=== PATIENT | female | born 1985 | race American Indian/Alaskan Native ===

== ENCOUNTER 2017-12-21 23:48 | Emergency (ER) | payer MEDICAID, OTHER ==
[2017-12-22 02:04] LABS: Basophils # (Auto) 0.2 K/mm3 (0.0-0.1); Basophils % (Auto) 1.9 % (0.0-1.8); Eosinophils # (Auto) 0.1 K/mm3 (0.0-0.4); Eosinophils % (Auto) 0.8 % (0.0-4.3); Hematocrit 39.5 % (30.3-42.9); Hemoglobin 13.6 gm/dl (10.1-14.3); Lymphocytes # (Auto) 3.3 K/mm3 (1.2-5.4); Lymphocytes % (Auto) 34.5 % (13.4-35.0); Mean Corpuscular HGB Conc 34 % (30-34); Mean Corpuscular Hemoglobin 29 pg (28-32); Mean Corpuscular Volume 85 fl (79-97); Monocytes # (Auto) 0.7 K/mm3 (0.0-0.8); Platelet Count 413 K/mm3 (140-440); Red Blood Count 4.66 M/mm3 (3.65-5.03); Red Cell Distribution Width 14.3 % (13.2-15.2)
[2017-12-22 02:23] LABS: BUN/Creatinine Ratio 14; Blood Urea Nitrogen 11 mg/dL (7-17); Calcium 9.4 mg/dL (8.4-10.2); Hemolysis Index 6
[2017-12-22 05:37] LABS: Bilirubin,Urine NEG (Negative); Blood,Urine NEG (Negative); Color,Urine Yellow (Yellow); Mucus,Urine FEW /HPF; Protein,Urine <15 mg/dL mg/dL (Negative); Urobilinogen,Urine < 2.0 mg/dL (<2.0); WBC,Urine < 1.0 /HPF (0.0-6.0)
[2017-12-22] MEDS ORDERED: NACL 0.9% 1000 ML 1,000 ML IV ONE (09:38)
[2017-12-22] MEDS ORDERED: MORPHINE IV PRN (09:38)
[2017-12-22] MEDS ORDERED: ZOFRAN IV ONE (09:38)
--- NOTE | 2017-12-22 09:42 | Emergency Department Report ---
- General Chief Complaint: Laceration/Recheck/Suture Stated Complaint: WOUND CHECK Time Seen by Provider: 12/22/17 09:34 Source: patient, family Mode of arrival: Ambulatory Limitations: No Limitations - History of Present Illness Initial Comments: Patient reports that she had hernia repair done towards the end of October of this year. She says there is infection in her nasal area. She said it reopened one week ago. Patient reported that she had the procedure done in [place] and she moved to [place] so there is no way she can follow-up. She says she has a follow-up appointment for January 18. She says she took Excedrin is not helping. Patient is here requesting that wound be repaired. She says she called called her surgeon in [place] and he said that emergency room should be able to help her . Pain is 7 out of 10 and feels sharp. Excedrin did not help pain. Pain is worse with touch. Better with rest. Last menstrual cycle was . Denies any fever or chills or nausea or vomiting. Pain is localized around surgical site of the umbilical hernia patient has a history of hypertension, pulmonary embolism and sickle cell trait. She has a history of left hand surgery, hernia repair, breast lift and tummy tuck. She reports drainage from open wounds mouth. Onset/Timin -: week(s) Location: abdomen Place: home Patient Tetanus UTD: Yes Context: other (status post umbilical hernia repair with complaints of open wound and drainage) Associated Symptoms: pain Treatments Prior to Arrival: bandage, other (Excedrin) - Related Data Previous Rx's Medication Instructions Recorded Last Taken Type Clindamycin [Clindamycin CAP] 300 mg PO Q6H #21 capsule 12/22/17 Unknown Rx Allergies Allergy/AdvReac Type Severity Reaction Status Date / Time No Known Allergies Allergy Unverified 12/22/17 01:26 ED Review of Systems ROS: Stated complaint: WOUND CHECK Other details as noted in HPI Comment: Unobtainable due to pts medical conditions Constitutional: no symptoms reported Eyes: denies: eye pain, eye discharge ENT: denies: ear pain, throat pain, congestion Respiratory: no symptoms reported Cardiovascular: denies: chest pain, palpitations, dyspnea on exertion, edema, syncope, paroxysmal nocturnal dyspnea Gastrointestinal: abdominal pain. denies: nausea, vomiting, constipation, hematemesis, melena, hematochezia Genitourinary: denies: urgency, dysuria, hematuria, abnormal menses Musculoskeletal: denies: back pain, joint swelling, arthralgia, myalgia Skin: denies: rash Neurological: denies: headache, numbness, abnormal gait, vertigo ED Past Medical Hx - Past Medical History Previous Medical History?: Yes Hx Hypertension: Yes Hx Pulmonary Embolism: Yes Hx Sickle Cell Disease: Yes (trait) - Surgical History Past Surgical History?: Yes Additional Surgical History: left hand, hernia, breast lift, tummy tuck - Family History Family history: hypertension - Social History Smoking Status: Never Smoker Substance Use Type: Alcohol - Medications Home Medications: Home Medications Medication Instructions Recorded Confirmed Last Taken Type Clindamycin [Clindamycin CAP] 300 mg PO Q6H #21 capsule 12/22/17 Unknown Rx ED Physical Exam - General Limitations: No Limitations General appearance: alert, in no apparent distress - Head Head exam: Present: atraumatic, normocephalic, normal inspection, other (normal exam) - Eye Eye exam: Present: normal appearance, PERRL, EOMI. Absent: conjunctival injection, periorbital swelling, periorbital tenderness Pupils: Present: normal accommodation - ENT ENT exam: Present: normal exam, normal orophraynx, mucous membranes moist, TM's normal bilaterally, normal external ear exam - Neck Neck exam: Present: normal inspection, full ROM, other (no C-spine tenderness). Absent: tenderness, meningismus, lymphadenopathy, thyromegaly - Respiratory Respiratory exam: Present: normal lung sounds bilaterally. Absent: respiratory distress, chest wall tenderness, accessory muscle use - Cardiovascular Cardiovascular Exam: Present: regular rate, normal rhythm, normal heart sounds - GI/Abdominal GI/Abdominal exam: Present: distended, tenderness (periumbilical area), guarding , normal bowel sounds, other (patient with open area at surgical site umbilical area with puslike drainage. Drainage is malodorous). Absent: rebound, rigid, organomegaly, mass, bruit, pulsatile mass, hernia - Extremities Exam Extremities exam: Present: normal inspection, full ROM, normal capillary refill , other (no clubbing, cyanosis or edema. +2 pulses to all extremities and no neurovascular compromise). Absent: tenderness, pedal edema, joint swelling, calf tenderness - Back Exam Back exam: Present: normal inspection, full ROM, other (ambulates without any difficulties). Absent: tenderness, CVA tenderness (R), CVA tenderness (L), muscle spasm, paraspinal tenderness, vertebral tenderness, rash noted - Neurological Exam Neurological exam: Present: alert, oriented X3, normal gait - Psychiatric Psychiatric exam: Present: normal affect, normal mood - Skin Skin exam: Present: warm, dry, erythema - Expanded Skin Exam Expanded Type of lesion: Present: abscess, other (surgical:) Distribution of rash: abdomen (umbilical) Description of rash: Present: tenderness, erythematous, swelling, discharge ( foul-smelling discharge). Absent: indurated ED Course Vital Signs 12/22/17 12/22/17 12/22/17 00:53 01:26 14:37 Temperature 98.4 F 98.4 F 98.7 F Pulse Rate 70 71 82 Respiratory 16 18 18 Rate Blood Pressure 131/97 131/97 Blood Pressure 111/68 [Right] O2 Sat by Pulse 100 100 Oximetry - Reevaluation(s) Reevaluation #1: 12/22/17 10:35 Patient started on normal saline 1 L and emergency room, nothing by mouth status. Zofran 4 mg IV, morphine 4 mg IV. Blood cultures collected and sent, patient to start on IV vancomycin. Lab work are within normal limits. is negative. She is stable and that her pain is better after medication. Still awaiting CT scan of abdomen and pelvis with IV contrast. Culture collected and sent Reevaluation #2: 12/22/17 11:44 Patient with tenderness to palpate periumbilical area but she said her pain is better. CT scan of the abdomen and pelvis with IV contrast shows that patient was superficial periumbilical infection with ear but no fluid collection. And no drainable abscess. This is discussed patient and I called Dr. Richards as who is surgery business economist. Reevaluation #3: 12/22/17 12:34 Patient pain is controlled. I spoke with Dr. Richards who is surgery on-call today. I gave patient history and lab/ CT scan results . He also spoke with Dr. Kitchen will give him information on patient. Surgery wants patient to be admitted via hospitalist service with surgery being consulted. Patient is stable at present and in no acute distress. Spoke with Dr. Grande who was the hospitalist and he'll see patient. Patient to be started on Zosyn IV Reevaluation #4: 12/22/17 13:18 Dr. Grande came and evaluated patient. - Consultations Consultation #1: 12/22/17 12:36 [facility] ED Medical Decision Making - Lab Data Result diagrams: 12/22/17 01:53 12/22/17 01:53 Lab Results 12/22/17 12/22/17 12/22/17 Range/Units 01:53 01:53 01:53 WBC 9.6 (4.5-11.0) K/mm3 RBC 4.66 (3.65-5.03) M/mm3 Hgb 13.6 (10.1-14.3) gm/dl Hct 39.5 (30.3-42.9) % MCV 85 (79-97) fl MCH 29 (28-32) pg MCHC 34 (30-34) % RDW 14.3 (13.2-15.2) % Plt Count 413 (140-440) K/mm3 Lymph % (Auto) 34.5 (13.4-35.0) % Orange % (Auto) 7.0 (0.0-7.3) % Eos % (Auto) 0.8 (0.0-4.3) % Baso % (Auto) 1.9 H (0.0-1.8) % Lymph # 3.3 (1.2-5.4) K/mm3 Orange # 0.7 (0.0-0.8) K/mm3 Eos # 0.1 (0.0-0.4) K/mm3 Baso # 0.2 H (0.0-0.1) K/mm3 Seg Neutrophils % 55.8 (40.0-70.0) % Seg Neutrophils # 5.4 (1.8-7.7) K/mm3 Sodium 134 L (137-145) mmol/L Potassium 3.6 (3.6-5.0) mmol/L Chloride 92.1 L (98-107) mmol/L Carbon Dioxide 28 (22-30) mmol/L Anion Gap 18 mmol/L BUN 11 (7-17) mg/dL Creatinine 0.8 (0.7-1.2) mg/dL Estimated GFR > 60 ml/min BUN/Creatinine Ratio 14 % Glucose 94 (65-100) mg/dL Calcium 9.4 (8.4-10.2) mg/dL Total Bilirubin (0.1-1.2) mg/dL Direct Bilirubin (0-0.2) mg/dL AST (5-40) units/L ALT (7-56) units/L Alkaline Phosphatase (35-129) units/L Total Protein (6.3-8.2) g/dL Albumin (3.9-5) g/dL Albumin/Globulin Ratio % HCG, Qual Negative (Negative) Urine Color (Yellow) Urine Turbidity (Clear) Urine pH (5.0-7.0) Ur Specific [place] (1.003-1.030) Urine Protein (Negative) mg/dL Urine Glucose (UA) (Negative) mg/dL Urine Ketones (Negative) mg/dL Urine Blood (Negative) Urine Nitrite (Negative) Urine Bilirubin (Negative) Urine Urobilinogen (<2.0) mg/dL Ur Leukocyte Esterase (Negative) Urine WBC (Auto) (0.0-6.0) /HPF Urine RBC (Auto) (0.0-6.0) /HPF U Epithel Cells (Auto) (0-13.0) /HPF Urine Mucus /HPF 12/22/17 12/22/17 Range/Units 04:14 11:19 WBC (4.5-11.0) K/mm3 RBC (3.65-5.03) M/mm3 Hgb (10.1-14.3) gm/dl Hct (30.3-42.9) % MCV (79-97) fl MCH (28-32) pg MCHC (30-34) % RDW (13.2-15.2) % Plt Count (140-440) K/mm3 Lymph % (Auto) (13.4-35.0) % Orange % (Auto) (0.0-7.3) % Eos % (Auto) (0.0-4.3) % Baso % (Auto) (0.0-1.8) % Lymph # (1.2-5.4) K/mm3 Orange # (0.0-0.8) K/mm3 Eos # (0.0-0.4) K/mm3 Baso # (0.0-0.1) K/mm3 Seg Neutrophils % (40.0-70.0) % Seg Neutrophils # (1.8-7.7) K/mm3 Sodium (137-145) mmol/L Potassium (3.6-5.0) mmol/L Chloride (98-107) mmol/L Carbon Dioxide (22-30) mmol/L Anion Gap mmol/L BUN (7-17) mg/dL Creatinine (0.7-1.2) mg/dL Estimated GFR ml/min BUN/Creatinine Ratio % Glucose (65-100) mg/dL Calcium (8.4-10.2) mg/dL Total Bilirubin 0.20 (0.1-1.2) mg/dL Direct Bilirubin < 0.2 (0-0.2) mg/dL AST 15 (5-40) units/L ALT 15 (7-56) units/L Alkaline Phosphatase 66 (35-129) units/L Total Protein 7.6 (6.3-8.2) g/dL Albumin 4.1 (3.9-5) g/dL Albumin/Globulin Ratio 1.2 % HCG, Qual (Negative) Urine Color Yellow (Yellow) Urine Turbidity Clear (Clear) Urine pH 5.0 (5.0-7.0) Ur Specific [place] 1.014 (1.003-1.030) Urine Protein <15 mg/dl (Negative) mg/dL Urine Glucose (UA) Neg (Negative) mg/dL Urine Ketones Neg (Negative) mg/dL Urine Blood Neg (Negative) Urine Nitrite Neg (Negative) Urine Bilirubin Neg (Negative) Urine Urobilinogen < 2.0 (<2.0) mg/dL Ur Leukocyte Esterase Neg (Negative) Urine WBC (Auto) < 1.0 (0.0-6.0) /HPF Urine RBC (Auto) 1.0 (0.0-6.0) /HPF U Epithel Cells (Auto) 1.0 (0-13.0) /HPF Urine Mucus Few /HPF Blood culture pending 1 culture from periumbilical area - Radiology Data Radiology results: report reviewed CT scan of the abdomen and pelvis with IV contrast revealed patient with suspected superficial periumbilical infection with ear but no fluid collection or drainable abscess. Fat-containing local hernia. Healed midline anterior suprapubic surgical incision with no signs of inflammation in the abdominal wall. The small bowel and colon are normal. No ascites and no pneumoperitoneum written to medium. - Medical Decision Making ED course: She presented to the emergency room with complaints that she has infection to her periumbilical area where she had surgery done third week in October in [place]. She says she moved to [place] and she has an infection at the surgical site and she is worried. She states that she called her surgeon in [place] and he said to go to the emergency room and they'll take care of it. CT scan of the abdomen and pelvis with IV contrast shows patient with superficial infection periumbilical area, which fat containing hernia without any gangrene or skin strangulation. No abscesses were seen. Patient had wound cultures done and sent. CBC and chemistry stable, negative negative urinalysis. Patient given 1 L of normal saline IV, Zofran 8 mg ODT and a total of 6 mg of morphine IV initial doses 4 mg and subsequent dose was at 2 mg IV. Patient voiced relief of pain. She had no acute abdomen. I spoke with Dr. Coon regarding patient laboratory findings and CT findings along with clinical presentation and complaints. Surgery was called who is Dr. Richards and after speaking myself and Dr. castaneda it was decided the patient will be admitted by hospitalist and he will be consulted. Dr. Grande was called and he saw patient and decided the patient can be discharged home on antibiotic. He spoke with on-call surgeon per Dr. Grande and patient will follow-up with Dr. richards outpatient. Patient was able to tolerate oral liquids and emergency room after IV fluid. She had no episode of nausea vomiting. Blood cultures are pending. Patient was discharged from emergency room by Dr. Grande who is hospitalists. Critical care attestation.: If time is entered above; I have spent that time in minutes in the direct care of this critically ill patient, excluding procedure time. ED Disposition Clinical Impression: S/P umbilical hernia repair, follow-up exam Postoperative cellulitis of surgical wound Qualifiers: Encounter type: initial encounter Qualified Code(s): T81.4XXA - Infection following a procedure, initial encounter Abdominal pain Qualifiers: Abdominal location: periumbilical Qualified Code(s): R10.33 - Periumbilical pain Disposition: OP ADMIT IP TO THIS HOSP Is pt being admited?: No Does the pt Need Aspirin: No Condition: Stable Instructions: Acute Wound Care (ED), Chronic Wound Care (ED), Wound Healing and Your Diet (ED) Additional Instructions: IT IS VERY IMPORTANT TO FOLLOW WITH DR. RICHARDS IN 5 DAYS. RETURN TO THE EMERGENCY DEPARTMENT FOR ANY NEW OR WORSENING SYMPTOMS. Prescriptions: Clindamycin [Clindamycin CAP] 300 mg PO Q6H #21 capsule Referrals: CATARINA RICHARDS MD [Staff Physician] - 3-5 Days PRIMARY CARE, [Primary Care Provider] - 3-5 Days Print Language: DUTCH
[2017-12-22] MEDS ORDERED: VANCOMYCIN VIAL IV ONE (09:59)
[2017-12-22] MEDS ORDERED: VANCOMYCIN PHARMACY TO DOSE IV SCH ×2 (10:00→11:00)
[2017-12-22] MEDS ORDERED: VANCOMYCIN 1,250 MG in NACL 0.9% 250ML 250 ML IV SCH (11:00)
--- NOTE | 2017-12-22 11:19 | Cat Scan Report ---
CT ABDOMEN AND PELVIS WITH CONTRAST: 12/21/17 23:48:00 CLINICAL: Post surgical wound infection an umbilical hernia. COMPARISON: None. TECHNIQUE: Volumetric acquisition and 1.25 millimeter scan reconstructions after the uneventful intravenous injection of 100 cc Omnipaque 300. Consent was obtained prior to the administration of contrast. Oral contrast was not given. FINDINGS: Abdomen: Rectus muscle diastasis and a moderate size fat containing umbilical hernia. No bowel extends into the hernia. A few pockets of superficial air are localized to the umbilicus and there is no periumbilical fluid collection. The small bowel and colon are normal. No ascites and no pneumoperitoneum. Normal liver, bile ducts and gallbladder. Normal stomach, duodenum, pancreas and spleen. Normal adrenal glands and kidneys. The renal collecting systems and ureters are nondilated. Normal aorta and inferior vena cava. Pelvis: Normal urinary bladder.Normal uterus and ovaries. No adnexal mass or free fluid. Normal rectum and sigmoid colon.A small midline suprapubic healed surgical incision with no inflammatory changes in the anterior abdominal wall at the incision. Bone windows demonstrate no bone lesion. IMPRESSION:1. Suspect a superficial periumbilical infection with air but no fluid collection or drainable abscess. 2. Fat-containing local hernia. 3. Healed midline anterior suprapubic surgical incision with no signs of inflammation in the abdominal wall.
[2017-12-22 12:04] LABS: Alanine Aminotransferase 15 units/L (7-56); Albumin 4.1 g/dL (3.9-5)
[2017-12-22 12:28] LABS: Bilirubin,Direct < 0.2 mg/dL (0-0.2)
[2017-12-22] MEDS ORDERED: MORPHINE IM ONE (13:00)
--- NOTE | 2017-12-22 13:45 | History and Physical Report ---
Medications and Allergies Allergies Allergy/AdvReac Type Severity Reaction Status Date / Time No Known Allergies Allergy Unverified 12/22/17 01:26 Active Meds: Active Medications Vancomycin HCl 1,250 mg/ (Sodium Chloride) 262.5 mls @ 166.667 mls/hr IV Q8H [facility] Last Admin: 12/22/17 11:35 Dose: 166.667 mls/hr Piperacillin Sod/Tazobactam Sod (Zosyn/Ns 4.5gm/100ml) 4.5 gm in 100 mls @ 200 mls/hr IV ONCE [place] Stop: 12/22/17 16:01 Morphine Sulfate (Morphine) 4 mg IV Q5MIN PRN PRN Reason: Chest Pain Last Admin: 12/22/17 10:19 Dose: 4 mg Vancomycin HCl (Vancomycin Pharmacy To Dose) 1 each IV PKCONSULT [facility] Exam - Constitutional Vitals: Temp Pulse Resp BP Pulse Ox 98.4 F 71 18 131/97 100 12/22/17 01:26 12/22/17 01:26 12/22/17 01:26 12/22/17 01:26 12/22/17 01:26 Results - Labs CBC & Chem 7: 12/22/17 01:53 12/22/17 01:53 Labs: Abnormal lab results 12/22/17 12/22/17 Range/Units 01:53 01:53 Baso % (Auto) 1.9 H (0.0-1.8) % Baso # 0.2 H (0.0-0.1) K/mm3 Sodium 134 L (137-145) mmol/L Chloride 92.1 L (98-107) mmol/L
[2017-12-22] MEDS ORDERED: ZOSYN/NS 4.5GM/100ML 4.5 GM/100 ML VIAL IV SCH (14:00)
[2017-12-22 14:38] VITALS: BP 111/68
== END 2017-12-22 14:37 | disposition admitted as inpatient to this hospital (09) ==
LOC: ED 23:48
DX: T81.4XXA Infection following a procedure, initial encounter (principal); R10.33 Periumbilical pain; I10 Essential (primary) hypertension; Z86.711 Personal history of pulmonary embolism
CPT/HCPCS: 36415; 74177; 80048; 80074; 81001; 84703; 85025; 87040; 87076; 87116; 87186; 96361; 96365; 96366; 96375; 99284; J2270; J2405; J7030; J7050; Q9967; J2543; J3370

== ENCOUNTER 2018-10-31 21:01 | Emergency (ER) | payer MEDICAID, OTHER ==
--- NOTE | 2018-10-31 21:50 | Emergency Department Report ---
Chief Complaint: Vaginal Bleeding Stated Complaint: SPOTTING LOWER BACK PAIN 17 WEEKS Time Seen by Provider: 10/31/18 21:47 - HPI History of Present Illness: pt is 17 weeks based on LNMP pt vaginal bleeding that began this morning lower back pain has seen OB but has not had a US /P:4/A:2 MSE screening note: Focused history and physical exam performed. Due to findings the following was ordered: labs, quant, UA, ABO/Rh, US ED Disposition for MSE Condition: Stable
[2018-10-31 21:56] VITALS: BP 117/78
[2018-10-31 22:53] LABS: Bilirubin,Urine NEG (Negative); Blood,Urine NEG (Negative); Color,Urine Yellow (Yellow); Mucus,Urine FEW /HPF; Protein,Urine <15 mg/dL mg/dL (Negative); Urobilinogen,Urine < 2.0 mg/dL (<2.0)
[2018-10-31 22:54] LABS: Basophils # (Auto) 0.1 K/mm3 (0.0-0.1); Basophils % (Auto) 0.6 % (0.0-1.8); Eosinophils % (Auto) 0.4 % (0.0-4.3); Hematocrit 34.7 % (30.3-42.9); Hemoglobin 11.6 gm/dl (10.1-14.3); Lymphocytes # (Auto) 2.5 K/mm3 (1.2-5.4); Lymphocytes % (Auto) 23.6 % (13.4-35.0); Mean Corpuscular HGB Conc 33 % (30-34); Mean Corpuscular Volume 86 fl (79-97); Monocytes # (Auto) 0.6 K/mm3 (0.0-0.8); Monocytes % (Auto) 5.6 % (0.0-7.3); Platelet Count 336 K/mm3 (140-440); Red Blood Count 4.04 M/mm3 (3.65-5.03); Red Cell Distribution Width 14.3 % (13.2-15.2)
[2018-10-31 23:11] LABS: Alanine Aminotransferase 11 units/L (7-56); Albumin 3.5 g/dL (3.9-5); BUN/Creatinine Ratio 10; Blood Urea Nitrogen 7 mg/dL (7-17); Hemolysis Index 2
[2018-10-31] MEDS ORDERED: TYLENOL PO ONE (23:24)
--- NOTE | 2018-10-31 23:25 | Emergency Department Report ---
ED HPI - General Chief complaint: Vaginal Bleeding Stated complaint: SPOTTING LOWER BACK PAIN 17 WEEKS Time Seen by Provider: 10/31/18 21:47 Source: patient Mode of arrival: Ambulatory Limitations: No Limitations - History of Present Illness Initial comments: pt is 17 weeks based on LNMP pt vaginal bleeding that began this mor cass lower back pain has seen OB but has not had a US /P:4/A:2 MD Complaint: abdominal pain Onset/Timin -: days(s) Location: abdomen Radiation: LLQ, RLQ Severity: moderate Severity scale (0 -10): 3 Quality: cramping, aching Consistency: constant Improves with: none, urination Worsens with: none Associated symptoms: abdominal pain, headache. denies: nausea/vomiting, vaginal discharge Vaginal bleeding: none :: Yes Number of weeks : 18 OB History - Current : no complications OB History - Previous Pregnancies: preeclampsia, other (4 vaginal normal, 2 tubal pregnancie terminated ) Last menstrual period: 06/04/18 Pre- care: followed by OB (Dr Meza) - Related Data : 7 Para: 4 Ab: 2 Previous Rx's Medication Instructions Recorded Last Taken Type Clindamycin [Clindamycin CAP] 300 mg PO Q6H #21 capsule 12/22/17 Unknown Rx Acetaminophen [Tylenol] 650 mg PO QID PRN #30 capsule 11/01/18 Unknown Rx Allergies Allergy/AdvReac Type Severity Reaction Status Date / Time No Known Allergies Allergy Unverified 12/22/17 01:26 ED Review of Systems ROS: Stated complaint: SPOTTING LOWER BACK PAIN 17 WEEKS Other details as noted in HPI Constitutional: denies: chills, fever Eyes: denies: eye pain, eye discharge, vision change ENT: denies: ear pain, throat pain Respiratory: denies: cough, shortness of breath, wheezing Cardiovascular: denies: chest pain, palpitations Endocrine: no symptoms reported Gastrointestinal: abdominal pain. denies: nausea, diarrhea, constipation, hematemesis, hematochezia Genitourinary: denies: urgency, dysuria, discharge Musculoskeletal: denies: back pain, joint swelling, arthralgia Skin: denies: rash, lesions Neurological: denies: headache, weakness, paresthesias Psychiatric: denies: anxiety, depression Hematological/Lymphatic: denies: easy bleeding, easy bruising ED Past Medical Hx - Past Medical History Previous Medical History?: Yes Hx Hypertension: Yes Hx Pulmonary Embolism: Yes Hx Sickle Cell Disease: Yes (trait) - Surgical History Past Surgical History?: Yes Additional Surgical History: left hand, hernia, breast lift, tummy tuck - Social History Smoking Status: Never Smoker Substance Use Type: None - Medications Home Medications: Home Medications Medication Instructions Recorded Confirmed Last Taken Type Clindamycin [Clindamycin CAP] 300 mg PO Q6H #21 capsule 12/22/17 Unknown Rx Acetaminophen [Tylenol] 650 mg PO QID PRN #30 capsule 11/01/18 Unknown Rx ED Physical Exam - General Limitations: No Limitations General appearance: alert, in no apparent distress - Head Head exam: Present: atraumatic, normocephalic - Eye Eye exam: Present: normal appearance, PERRL, EOMI Pupils: Present: normal accommodation - ENT ENT exam: Present: mucous membranes moist - Neck Neck exam: Present: normal inspection, full ROM. Absent: lymphadenopathy - Respiratory Respiratory exam: Present: normal lung sounds bilaterally. Absent: respiratory distress, wheezes, stridor, chest wall tenderness - Cardiovascular Cardiovascular Exam: Present: regular rate, normal rhythm, normal heart sounds. Absent: systolic murmur, diastolic murmur, rubs, gallop - GI/Abdominal GI/Abdominal exam: Present: soft, normal bowel sounds. Absent: tenderness, rebound, bruit, hernia - Rectal Rectal exam: Present: deferred - External exam: Present: other (exam deferred per patient ) - Extremities Exam Extremities exam: Present: normal inspection - Back Exam Back exam: Present: normal inspection, full ROM. Absent: tenderness, CVA tenderness (R), CVA tenderness (L), muscle spasm, paraspinal tenderness, vertebral tenderness, rash noted - Neurological Exam Neurological exam: Present: alert, oriented X3, CN II-XII intact, normal gait, reflexes normal - Psychiatric Psychiatric exam: Present: normal affect, normal mood - Skin Skin exam: Present: warm, dry, intact, normal color. Absent: rash ED Course Vital Signs 10/31/18 21:52 Temperature 97.7 F Pulse Rate 104 H Respiratory 16 Rate Blood Pressure 117/78 O2 Sat by Pulse 100 Oximetry ED Medical Decision Making - Lab Data Result diagrams: 10/31/18 22:00 10/31/18 22:00 Labs 10/31/18 10/31/18 10/31/18 22:00 22:00 22:00 WBC 10.6 RBC 4.04 Hgb 11.6 Hct 34.7 MCV 86 MCH 29 MCHC 33 RDW 14.3 Plt Count 336 Lymph % (Auto) 23.6 Mcintosh % (Auto) 5.6 Eos % (Auto) 0.4 Baso % (Auto) 0.6 Lymph # 2.5 Mcintosh # 0.6 Eos # 0.0 Baso # 0.1 Seg Neutrophils % 69.8 Seg Neutrophils # 7.4 Sodium 135 L Potassium 3.9 Chloride 101.2 Carbon Dioxide 20 L Anion Gap 18 BUN 7 Creatinine 0.7 Estimated GFR > 60 BUN/Creatinine Ratio 10 Glucose 85 Calcium 9.0 Total Bilirubin 0.20 AST 17 ALT 11 Alkaline Phosphatase 67 Total Protein 6.8 Albumin 3.5 L Albumin/Globulin Ratio 1.1 Urine Color Urine Turbidity Urine pH Ur Specific [place] Urine Protein Urine Glucose (UA) Urine Ketones Urine Blood Urine Nitrite Urine Bilirubin Urine Urobilinogen Ur Leukocyte Esterase Urine WBC (Auto) Urine RBC (Auto) U Epithel Cells (Auto) Urine Mucus Blood Type A POSITIVE 10/31/18 22:30 WBC RBC Hgb Hct MCV MCH MCHC RDW Plt Count Lymph % (Auto) Mcintosh % (Auto) Eos % (Auto) Baso % (Auto) Lymph # Mcintosh # Eos # Baso # Seg Neutrophils % Seg Neutrophils # Sodium Potassium Chloride Carbon Dioxide Anion Gap BUN Creatinine Estimated GFR BUN/Creatinine Ratio Glucose Calcium Total Bilirubin AST ALT Alkaline Phosphatase Total Protein Albumin Albumin/Globulin Ratio Urine Color Yellow Urine Turbidity Clear Urine pH 5.0 Ur Specific [place] 1.014 Urine Protein <15 mg/dl Urine Glucose (UA) Neg Urine Ketones Neg Urine Blood Neg Urine Nitrite Neg Urine Bilirubin Neg Urine Urobilinogen < 2.0 Ur Leukocyte Esterase Neg Urine WBC (Auto) 1.0 Urine RBC (Auto) 2.0 U Epithel Cells (Auto) 1.0 Urine Mucus Few Blood Type - Radiology Data Radiology results: image reviewed Single IUP 17 weeks 5 Days , Heart Rate 166 bpm FINDINGS: MATERNAL: Uterus and cervix: The cervix is closed measures 3.8 cm in length. IUP: Single live intrauterine gestation. Position: Breech Placental position: Fundal, without previa . Amniotic fluid volume Normal.. Cardiac activity: Regular rhythm at 166 bpm. BIOMETRY: Biparietal diameter: 3.7 cm corresponding to 17 weeks and 2 days. Head circumference: 14.1 cm corresponding to 17 weeks and 3 days. abdominal circumference: 12 cm corresponding to 17 weeks and 5 days. Femur length: 2.4 cm corresponding to 17 weeks and 3 days. Ratio biometry: Normal . Estimated Weight: 199 grams +/- grams Mean Gestational Age (composite criteria) based on today's measurements: 17 weeks and 3 days . Estimated Due Date (earliest scan): 04/07/2019. IMPRESSION: Single live intrauterine gestation at 17 weeks and 3 days. Estimated due date: 04/07/2019. This document is electronically signed by Giulia Hui MD., October 31 2018 11:35:52 PM ET Transcribed By: [facility] [place] Dictated By: GIULIA HUI Electronically Authenticated By: GIULIA HUI Signed Date/Time: 10/31/182337 DD/ 16 TD/TT: 10/31/182318 - Medical Decision Making US: Single IUP 17Weeks 5 Days , Hear 166 bpm, plan: Tylenol prn pain , follow up with OBGYN Dr. West tomorrow, for follow as pt defers vaginal exam to OB, states bleeding is pink spotting, no clots no vaginal discharge , will dx Threatened Miscarriage Bleeding during , Pelvic Rest, Return to ed if syptoms wornsen. Critical care attestation.: If time is entered above; I have spent that time in minutes in the direct care of this critically ill patient, excluding procedure time. ED Disposition Clinical Impression: Threatened miscarriage Abdominal pain during Qualifiers: Trimester: first trimester Qualified Code(s): O26.891 - Other specified p regnancy related conditions, first trimester; R10.9 - Unspecified abdominal pain Disposition: -01 TO HOME OR SELFCARE Is pt being admited?: No Does the pt Need Aspirin: No Condition: Stable Instructions: Threatened Miscarriage (ED), Abdominal Pain in (ED) Prescriptions: Acetaminophen [Tylenol] 650 mg PO QID PRN #30 capsule PRN Reason: pain Referrals: PRIMARY CAREMD [Referring] - 3-5 Days RUIZ WEST MD [Referring] - 24 Hours Forms: Work/School Release Form(ED) Time of Disposition: 00:40
--- NOTE | 2018-10-31 23:38 | Ultrasound Report ---
PROCEDURE: US OB >= 14 WEEKS FETUS TECHNIQUE: Real-time transabdominal sonography of the uterus, placenta, amniotic fluid, adnexa, and fetus was performed with image documentation. Measurements were obtained to determine age/size. M-mode Doppler was used to document heartbeat. ADDITIONAL GESTATION: None HISTORY: 17 weeks , vaginal bleeding COMPARISONS: None. FINDINGS: MATERNAL: Uterus and cervix: The cervix is closed measures 3.8 cm in length. IUP: Single live intrauterine gestation. Position: Breech Placental position: Fundal, without previa . Amniotic fluid volume Normal.. Cardiac activity: Regular rhythm at 166 bpm. BIOMETRY: Biparietal diameter: 3.7 cm corresponding to 17 weeks and 2 days. Head circumference: 14.1 cm corresponding to 17 weeks and 3 days. abdominal circumference: 12 cm corresponding to 17 weeks and 5 days. Femur length: 2.4 cm corresponding to 17 weeks and 3 days. Ratio biometry: Normal . Estimated Weight: 199 grams +/- grams Mean Gestational Age (composite criteria) based on today's measurements: 17 weeks and 3 days . Estimated Due Date (earliest scan): 04/07/2019. IMPRESSION: Single live intrauterine gestation at 17 weeks and 3 days. Estimated due date: 04/07/2019. This document is electronically signed by Champ Hui MD., October 31 2018 11:35:52 PM ET
== END 2018-11-01 00:47 | disposition home or self-care (01) ==
LOC: ED 21:01
DX: O20.0 Threatened abortion (principal); O26.891 Other specified pregnancy related conditions, first trimester; R10.9 Unspecified abdominal pain; Z3A.17 17 weeks gestation of pregnancy
CPT/HCPCS: 36415; 76805; 80053; 81001; 84702; 85025; 86900; 86901